=== PATIENT | female | born 1990 | race Caucasian/White ===

== ENCOUNTER 2016-08-24 02:40 | Emergency (ER) | payer OTHER ==
[~2016-08-24 02:40] MED LIST: ADDERALL20 MG PO; EFFEXOR; KLONOPIN2 MG; LEXAPRO10 MG PO; MOTRIN800 MG PO; NORCO 5/3251 TABLET PO; PERCOCET 5/31 TABLET PO; VITAFOL-OB+DHA1 EACH PO; ZOFRAN ODT8 MG PO
[2016-08-24 03:08] LABS: HEMATOCRIT 36.4 % (36.0-46.0); MCH 30.6 PG (29.0-34.0); MCHC 33.5 G/DL (30.0-36.0); MCV 91.2 FL (83-99); MEAN PLAT.VOLUME 9.8 uM^3 (9.5-12.4); PLATELET COUNT 353 K/uL (156-360); RBC DIS.WIDTH-CV 13.1 % (11.8-14.6); RBC DIS.WIDTH-SD 42.1 % (39-53); RED BLOOD COUNT 3.99 M/uL (3.80-5.20)
[2016-08-24 03:12] LABS: EOSINOPHIL (%) 0.8 % (0-5); EOSINOPHIL COUNT 0.1 K/uL (0-0.3); IMMATURE GRANULOCYTE (%) 0.6 % (0.0-0.7); LYMPHOCYTE COUNT 5.4 K/uL (1.0-2.8); MONOCYTE (%) 4.7 % (3-12); MONOCYTE COUNT 0.8 K/uL (0-0.8); NEUTROPHIL (%) 62.3 % (45-76); NEUTROPHIL COUNT 10.6 K/uL (1.8-6.4)
[2016-08-24 03:20] LABS: AMYLASE 60 IU/L (1-118); CHLORIDE 108 mEq/L (99-109); POTASSIUM 3.1 mEq/L (3.7-5.4); SODIUM 140 mEq/L (136-147)
[2016-08-24 03:22] LABS: GLUCOSE 137 mg/dL (70-99)
[2016-08-24 03:23] LABS: ANION GAP 14 MEQ/L (2-14)
[2016-08-24 03:25] LABS: GFR ESTIMATE (CALCULATED) > 59 mL/min/; SERUM ETHYL ALCOHOL 206 mg/dL
[2016-08-24 03:26] LABS: UREA NITROGEN (BUN) 14 mg/dL (9-23)
[2016-08-24 03:28] LABS: LIPASE 35 U/L (1.0-51.0)
[2016-08-24 03:28] LABS: BASE EXCESS -5.9 mEq/L (-3 to +3); BICARBONATE 21.1 mEq/L (22-26); CARBOXY HGB 5.3 % (0-5); METHEMOGLOBIN 1.2 % (0-1.5); PCO2 47 mm Hg (35-45); PO2 354 mm Hg (80-100)
[2016-08-24 03:29] LABS: COMMENTS - BLOOD GASES C+A+; DEVICE VENTILATOR; FI02 100 %; MECHANICAL RATE 16 resp/min; MODE AC; PEEP 5 CM/H20; SITE RR; TIDAL VOLUME 500 ML; TOTAL RESP RATE 16 resp/min; pH 7.26 (7.35-7.45)
[2016-08-24 03:35] LABS: QUANTITATIVE HCG 53.4 MIU/ML
[2016-08-24 03:37] LABS: ADD MIUA? YES; BILIRUBIN NEGATIVE; BLOOD MODERATE; COLOR YELLOW ((YELLOW)); GLUCOSE (STRIP) NEGATIVE; KETONES NEGATIVE; LEUKOCYTES NEGATIVE; NITRITE NEGATIVE; PH, URINE 5.5 (5-8); PROTEIN (STRIP) 30; SPECIFIC GRAVITY 1.021 (1.000-1.030); UROBILINOGEN 0.2 MG/DL (0.2-1.0)
[2016-08-24 03:45] LABS: AMPHETAMINE NEGATIVE (500 ng/mL); BARBITURATES NEGATIVE (200 ng/mL); BENZODIAZEPINES NEGATIVE (150 ng/mL); COCAINE NEGATIVE (150 ng/mL); METHADONE NEGATIVE (200 ng/mL); METHAMPHETAMINE NEGATIVE (500 ng/mL); OPIATES (MORPHINE) PRESUMPTIVE POSITIVE (100 ng/mL); OXYCODONE NEGATIVE (100 ng/mL); PHENCYCLIDINE NEGATIVE (25 ng/mL); PROPOXYPHENE NEGATIVE (300 ng/mL); THC CANNABINOIDS NEGATIVE (50 ng/mL); TRICYCLIC ANTIDEPRESSANTS NEGATIVE (300 ng/mL)
[2016-08-24 03:46] LABS: ADD MEDTOX COMMENT Y; INTERNAL CONTROLS VALID? YES
[2016-08-24 04:05] LABS: BASE EXCESS -7.6 mEq/L (-3 to +3); BICARBONATE 19.7 mEq/L (22-26); CARBOXY HGB 4.4 % (0-5); COMMENTS - BLOOD GASES C+A+; DEVICE VENTILATOR; FI02 60 %; MECHANICAL RATE 20 resp/min; METHEMOGLOBIN 1.3 % (0-1.5); MODE AC; PCO2 46 mm Hg (35-45); PEEP 5 CM/H20; PO2 158 mm Hg (80-100); SITE LR; TIDAL VOLUME 500 ML; TOTAL RESP RATE 20 resp/min; pH 7.24 (7.35-7.45)
[2016-08-24 04:14] LABS: AMORPHOUS URATES CRYSTALS 1+; BACTERIA 2+; CASTS PRESENT /LPF; CRYSTALS PRESENT; EPITHELIAL CELLS 2+; FINE GRANULAR CASTS 0-5 /LPF; MUCUS NONE SEEN; RED BLOOD CELLS 0-5 /HPF (0-5); UCUL ADDED? NO; WHITE BLOOD CELLS NONE SEEN /HPF (0-5)
== END 2016-08-24 04:32 | disposition designated cancer center or children's hospital, planned readmission (85) ==
LOC: TRA 02:40
PROVIDERS: Emergency Medicine
DX: T24.301A Burn of third degree of unspecified site of right lower limb, except ankle and foot, initial encounter (principal); S72.062A Displaced articular fracture of head of left femur, initial encounter for closed fracture; S82.54XA Nondisplaced fracture of medial malleolus of right tibia, initial encounter for closed fracture; S36.113A Laceration of liver, unspecified degree, initial encounter; V57.5XXA Driver of pick-up truck or van injured in collision with fixed or stationary object in traffic accident, initial encounter; E87.2 Acidosis
CPT/HCPCS: 31500; 36600; 70450; 70486; 71010; 71260; 72125; 72129; 72132; 72170; 73590; 74177; 80048; 81003; 82150; 82803; 83690; 84702; 84999; 85025; 86850; 86900; 86901; 94002; 99281; 99285; G0480; J2270; J2405; J2704; J3010

== ENCOUNTER 2018-02-23 13:49 | Emergency (ER) | payer BC, OTHER ==
[~2018-02-23] VITALS: Ht 177.8 cm; Wt 80.7 kg
[2018-02-23 15:17] LABS: HEMATOCRIT 38.8 % (36.0-46.0); HEMOGLOBIN 13.2 G/DL (11.9-15.5); MCH 30.4 PG (29.0-34.0); MCV 89.4 FL (83-99); PLATELET COUNT 278 K/uL (156-360); RBC DIS.WIDTH-CV 12.5 % (11.8-14.6); RBC DIS.WIDTH-SD 40.9 % (39-53); RED BLOOD COUNT 4.34 M/uL (3.80-5.20)
[2018-02-23 15:28] LABS: CHLORIDE 106 mEq/L (99-109); POTASSIUM 3.5 mEq/L (3.7-5.4); SODIUM 141 mEq/L (136-147)
[2018-02-23 15:30] LABS: GLUCOSE 86 mg/dL (70-99)
[2018-02-23 15:34] LABS: CREATININE 0.8 mg/dL (0.6-1.3); GFR ESTIMATE (CALCULATED) > 59 mL/min/; UREA NITROGEN (BUN) 15 mg/dL (9-23)
[2018-02-23 15:41] LABS: QUANTITATIVE HCG < 4.0 MIU/ML
[2018-02-23 16:36] LABS: THYROTROPIN (TSH) 1.9 MIU/L (0.4-5.5)
[2018-02-23] MEDS ORDERED: FLEXERIL10 MG PO (16:48)
[2018-02-23] MEDS ORDERED: MOTRIN800 MG PO (16:48)
[2018-02-23] MEDS ORDERED: LIDODERM 5% P1 PATCH TD (16:48)
[2018-02-23 17:07] VITALS: BP 142/95
== END 2018-02-23 17:10 | disposition home or self-care (01) ==
LOC: EME 13:49 → EXP 13:49
PROVIDERS: Nurse Practitioner Family
DX: M25.552 Pain in left hip (principal); F41.9 Anxiety disorder, unspecified; F17.200 Nicotine dependence, unspecified, uncomplicated; I10 Essential (primary) hypertension; J45.909 Unspecified asthma, uncomplicated
CPT/HCPCS: 73502; 80048; 84439; 84443; 84702; 85027; 99281; 99284